=== PATIENT | female | born 1970 | race Caucasian/White ===

== ENCOUNTER → 2023-08-13 14:16 | Outpatient (REF) | payer MEDICARE, OTHER, SELFPAY | LOC: RAD 14:16 | PROVIDERS: ATTENDING PHYSICIAN Emergency Medicine; FAMILY PHYSICIAN Family Medicine | DX: M19.071 Primary osteoarthritis, right ankle and foot (principal); M25.472 Effusion, left ankle | CPT/HCPCS: 73610 ==

== ENCOUNTER 2023-10-24 18:07 | Observation (INO) | payer MEDICARE, OTHER, SELFPAY ==
[2023-10-24] VITALS (8 sets, daily range): BP systolic 119–181; BP diastolic 73–120; BMI 36.0
[2023-10-24 13:57] LABS: Glucose - Point of Care 88 mg/dl (70-99)
[2023-10-24 14:05] LABS: % Basophils 0.8 % (0-2); % Eosinophils 0.2 % (0-6); % Immature Granulocytes 0.6 % (0-0.5); % Lymphocytes 16.6 % (20.5-51.1); % Monocytes 5.5 % (1.7-9.3); % Neutrophils 76.3 % (42.2-75.2); Absolute Basophils 0.1 10^3/uL (0-0.2); Absolute Immature Granulocytes 0.1 10^3/uL (0-0.05); Absolute Lymphocytes 1.8 10^3/uL (1.2-3.4); Absolute Monocytes 0.6 10^3/uL (0.1-0.6); Absolute Neutrophils 8.3 10^3/uL (1.4-6.5); Hematocrit 38.4 % (37.0-47.0); Hemoglobin 13.7 g/dL (12.0-16.0); Mean Corp Hgb Conc. 35.7 g/dL (33.0-37.0); Mean Corpuscular Hgb 33.3 pg (27.0-31.0); Mean Corpuscular Volume 93.4 fL (81.0-99.0); Mean Platelet Volume 9.7 fL (7.4-10.4); Nucleated Red Blood Cells % 0 %; Platelet Count 296 10^3/uL (130-400); Red Blood Cell Count 4.11 10^6/uL (4.20-5.40); White Blood Cell Count 10.8 10^3/uL (4.8-10.8)
[2023-10-24 14:28] LABS: Troponin I < 0.012 ng/ml
[2023-10-24 14:36] LABS: ALT (SGPT) 15 U/L (0-35); AST (SGOT) 44 U/L (14-36); Albumin 4.5 g/dl (3.5-5.0); Alkaline Phosphatase 98 U/L (38-126); Blood Urea Nitrogen 21 mg/dl (7-17); Carbon Dioxide 24 mmol/L (22-30); Chloride 102 mmol/L (98-107); Glucose 90 mg/dl (70-99); Potassium 4.2 mmol/L (3.5-5.1); Sodium 136 mmol/L (135-145); Total Bilirubin 0.5 mg/dl (0.2-1.3); Total Protein 7.4 g/dl (6.3-8.2); eGFR > 60.00
[2023-10-24 14:47] LABS: Ammonia < 9 umol/L (9-30)
[2023-10-24 15:24] LABS: Alcohol 200 mg/dl
--- NOTE | 2023-10-24 16:10 | ED.GENMED ---
History of Present Illness
General
Chief Complaint: Change in Mental Status
Source: patient and spouse
Exam Limitations: clinical condition
Time Seen by Provider: 10/24/23 13:25
Travel History
Have you had any contact with someone who has COVID-19?: No
Do you have any symptoms of coronavirus? Fever > 100 degrees, chills, cough, shortness of breath, sore throat, loss of taste or smell, muscle aches, or headache?: No
History of Present Illness
History of Present Illness:
53-year-old female presents with her who states that the patient is had speech difficulties. noticed that about 36 hours ago. He states that today it was severe. He knows that she has had occasional difficulties with alcohol and
was not sure if it is alcohol related or not but that he has never seen her have speech difficulties like this. The patient denies daily alcohol use. She also is on chronic narcotic pain medications. She also has an intrathecal morphine pump.
Patient's history is somewhat limited due to the fact that she is aphasic. She denies headache. She denies vision changes.
Past History
Past History
ED Past Medical History: GERD (Takes Prilosec), HTN (Takes lisinopril and hydrochlorothiazide), Psychiatric (Patient takes Cymbalta and Lyrica), Other (PE) and Other (Patient has chronic back pain and takes oxycodone); Negative CAD or Cancer
ED Past Surgical History: None, Appendectomy and Cholecystectomy; Negative Cardiac or Orthopedic
Social History
Tobacco: Non-smoker
Alcohol: None
Personal:
Living: with family
Employment: Disabled
Family History
Family History: Hypertension
Phy Exam
Physical Exam
Physical Exam:
CONSTITUTIONAL Patient alert and oriented to person, place. Vital signs reviewed.
HEAD atraumatic, normocephalic.
EYES eyelids normal to inspection, Pupils equally round and reactive to light, Extraocular muscles intact, Conjunctiva normal, Sclera normal.
NECK normal range of motion, Trachea midline, no jugular venous distention.
RESPIRATORY CHEST No respiratory distress noted, Chest expansion equal, Bilateral breath sounds clear.
CARDIOVASCULAR regular rate and rhythm, Heart sounds normal.
ABDOMEN abdomen nontender, Bowel sounds normal. No distention.
BACK normal inspection, no obvious deformities
UPPER EXTREMITY range of motion normal, Motor strength normal, no cyanosis, no edema.
LOWER EXTREMITY range of motion normal, Motor strength normal, no cyanosis, no edema.
NEURO aphasic, No focal motor deficits, Cranial Nerves intact to screening exam. No pronator drift.
SKIN skin warm, dry, and normal in color.
Course
Orders/Labs/Results
Orders:
Orders
10/24/23 Lunch
Regular
At Your Request: Full Participation
Does patient need a safe tray?: No
10/24/23 13:49
Electrocardiogram (*1) Stat
Reason for Study: Other
Other Reason for Exam: neuro symptoms
CT Head W/o Iv Contrast Urgent
Comment:
Reason For Exam: aphasia
Cardiac Monitoring- Treatment ONCE
EKG- Treatment ONCE
10/24/23 13:51
Alcohol Urgent
Complete Blood Count/With Diff Urgent
Comprehensive Metabolic Panel Urgent
Magnesium Urgent
Comment: ADD ON
Phosphorus Urgent
Comment: ADD ON
Troponin I Urgent
10/24/23 14:17
Ammonia Urgent
10/24/23 16:17
Oxycodone [Roxicodone] 15 mg PO NOW STA
10/24/23 17:36
Admit/Transfer Patient As Directed
Co-Sign Provider:
Level of Care: Observation services
Assign to:: Telemetry
Physician / Group: Kelsea Steiner - barrieists
Diagnosis: Aphasia, ETOH intoxication
Reason for Telemetry: CVA/TIA
Date to Stop Telemetry: 10/27/23
Time to Stop Telemetry: 11:00
Reason for Hospitalization: Aphasia, ETOH intoxication
10/24/23 17:37
Code Status As Directed
Resuscitation Status: Full Code
10/24/23 20:19
0.9% Sodium Chloride [Nss (Preservative Free)] See Protocol IV PRN PRN
Acetaminophen [Tylenol] 650 mg PO Q4HPRN PRN
Bisacodyl [Dulcolax] 10 mg RECTAL [id number] PRN
Docusate W/Senna [Senokot-S] 1 tablet PO BIDPRN PRN
Enoxaparin Sodium [Lovenox] 40 mg SC QPM
FOLic ACID [Folvite] 1 mg 0.9% Sodium Chloride 50 ml [Nss] 50 ml IV DAILYPRN
Lorazepam [Ativan] 1 mg IV Q1HPRN PRN
Lorazepam [Ativan] 1 mg PO Q2HPRN PRN
Lorazepam [Ativan] 2 mg IV Q1HPRN PRN
Nicotine [Nicoderm Transdermal] 14 mg TRANSDERM DAILY
Ondansetron Injectable [Zofran] 4 mg IV Q6HPRN PRN
Oxycodone [Roxicodone] 5 mg PO Q4HPRN PRN
Polyethylene Glycol Powder [Miralax] 17 grams PO DAILYPRN PRN
Thiamine Injection 200 mg IV Q12
10/24/23 20:19
Add On- LAB Routine
Tests Added?: mag, phos
Case Management Consult Once
Case Management Consult: Other
Comment: Substance abuse counseling
DIETARY CONSULT Routine
Reason for Consult: Nutrition support, possible refeeding guidelines
NEUROLOGY CONSULT Routine
Consulting Provider: Lemuel Hopkins
Was physician already notified: Yes
Activity As Directed
Activity Level: As Tolerated
MSAS SCORE As Directed
MSAS Score 0-4: Repeat MSAS every 2 hours until 0-4 for three consecutive assessments, then every 4 hours x 48
hours.
MSAS Score 5-7: For MILD withdrawl symptoms. Repeat MSAS and RASS every 2 hours
MSAS Score 8-11: For MODERATE withdrawal symptoms. Repeat MSAS and RASS every 1 hour. Consider ICU or IMU
level of care.
MSAS Score > 11: For SEVERE withdrawal symptoms. Repeat MSAS and RASS every 1 hour. Notify provider, consider
ICU level of care.
MSAS Additional Instructions: If no improvement or no decrease in score from severe to moderate within 12
hours, consult psychiatry
MSAS Notify Provider: Notify provider if patient requires more than 10 mg of Lorazepam in eight hour period.
Neurological Checks As Directed
Frequency: q4h
Vital Signs As Directed
Frequency: Per unit guidelines
DX Deep Vein Thrombosis Video Routine
10/24/23 21:00
Pantoprazole [Protonix] 40 mg PO BID
10/24/23 22:00
Oxycodone [Roxicodone] 15 mg PO QID
Pregabalin [Lyrica] 300 mg PO HS
10/25/23 05:54
Basic Metabolic Panel IN AM
Cardiovascular Evaluation IN AM
Complete Blood Count/No Diff IN AM
Folate IN AM
Hemoglobin A1c [Glycohemoglobin (HgbA1c)] IN AM
Magnesium IN AM
Phos [Phosphorus] IN AM
TSH IN AM
Vitamin B12 IN AM
10/25/23 06:00
Pt Eval And Treat IN AM
Activity Level: As Tolerated
10/25/23 08:00
Duloxetine Delayed Release [Cymbalta Delayed Release] 60 mg PO DAILY
FOLic ACID [Folvite] 1 mg PO DAILY
Hydrochlorothiazide [Oretic] 25 mg PO DAILY
Lisinopril [Zestril] 40 mg PO DAILY
Pregabalin [Lyrica] 150 mg PO DAILY
10/27/23 11:00
DC Protocol for Telemetry ONCE
10/27/23 20:00
Thiamine HCl [Vitamin B1] 100 mg PO BID
Abnormal Lab Results
10/24/23 10/24/23
13:51 14:17
RBC 4.11 L 10^6/uL
(4.20-5.40)
MCH 33.3 H pg
(27.0-31.0)
Abs Immat Gran (auto) 0.1 H 10^3/uL
(0-0.05)
Absolute Neuts (auto) 8.3 H 10^3/uL
(1.4-6.5)
Immature Gran % 0.6 H %
(0-0.5)
Neutrophils % 76.3 H %
(42.2-75.2)
Lymphocytes % 16.6 L %
(20.5-51.1)
BUN 21 H mg/dl
(7-17)
AST 44 H U/L
(14-36)
Ammonia < 9 L umol/L
(9-30)
10/24/23 13:51
10/24/23 13:51
Vital Signs
Initial and Last Documented VS:
Initial Vital Signs
Temp Pulse Resp BP Pulse Ox
97.9 F 96 16 133/84 97
10/24/23 12:25 10/24/23 12:25 10/24/23 12:25 10/24/23 12:25 10/24/23 12:25
Last Documented Vital Signs
Temp Pulse Resp BP Pulse Ox
98.1 F 95 17 136/101 98
10/25/23 15:40 10/25/23 15:40 10/25/23 15:40 10/25/23 15:40 10/25/23 15:40
MDM/Problems Addressed
MDM/Problems Addressed:
Aphasia, acute alcohol intoxication, chronic opioid dependence
*Radiology
Radiology exam reviewed: radiology read reviewed
*Pulse Oximetry
Patient hypoxic: no
*EKG
Interpreted by ED Provider?: Yes
Interpretation: abnormal
Rate: normal
Interval: long QT
Ischemia: non-specific ST changes
*Pottery Decorator Interpretation
Rate: normal
Interpretation: normal
Rhythm: sinus
*Critical Care Note
Total Time (30-74mins, 75-104mins- exclusive of procedures): Not Applicable
Data Reviewed
Source: patient and family
Prescriptions/Medications Considered But Not Given:
Consider TNK but patient is not a candidate due to the fact that she is not on the window
Patient Management
Discussion with other providers: Hospitalist and Enginehouse Brakeman (Neurology)
Escalation/DeEscalation of care consider admission/obs:
53-year-old female who presents with pretty profound aphasia. On reevaluation seems slightly improved but does continue to have aphasia. Alcohol level noted. Question whether this could be more alcohol related than TIA/CVA but unclear. Despite
her aphasia she was awake alert and follow commands. CT negative. Case discussed with neurology. Hold off on treatment for now. Admit for obs. She did miss her dose of narcotics. Will treat with oxycodone that she normally takes to prevent
withdrawal
ED Attending Note
-
Portions of this chart may have been created with voice recognition software.� Occasional wrong word or��sound alike� substitutions may have occurred due to the inherent limitations of voice recognition software.
Discharge Plan
Departure
Patient Disposition: Admit
Date of Disposition: 10/24/23
Time of Disposition: 16:12
Admit to: Telemetry
Presentation/result/management discussed w/ accepting MD/DO: Hospitalist
Discharge Problem:
Aphasia, Alcohol intoxication
Interventions
Interventions:
*Risk Screen - Suicide Last Done: 10/24/23 13:01
*General Assessment Last Done: 10/24/23 13:00
*Neglect/Abuse Screening Last Done: 10/24/23 13:00
*ED COVID-19 Vaccine History Last Done: 10/24/23 13:00
*Nursing Disposition Last Done: 10/24/23 20:30
ED- Pulmonary Assessment Last Done: 10/24/23 13:00
ED- Neurological Assessment Last Done: 10/24/23 13:00
ED- Cardiac Assessment Last Done: 10/24/23 13:00
Discharge Date and Time
Discharge Date/Time: 10/24/23 20:36
[2023-10-24] MEDS: ROXICODONE 15 MG PO ×2 (16:27→21:35)
--- NOTE | 2023-10-24 17:14 | HPS.HSE ---
Family Physician
-
Family Physician: Wiliam Castorena
Chief Complaint
-
aphasia
History of Present Illness
53 y/o F, hx of GERD, HTN, Chronic back pain on oxycodone and morphine pump presents to ER with aphasia. noticed this 36 hours ago. He reports that patient had difficult with comprehending conversation, and giving inappropriate answers to
questions. 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 Also he reports patient did not endorse any other complaints such as CP or SOB, fever/chill or GI/ symptoms. He does report patient might have been drinking as he noticed
vodka and wine bottles (he works at night so is seeing these the morning after).
In ER, patient found to have ETOH level 200. Admitting for CVA evaluation as OBS patient.
Medical History
Past Medical History
Past Medical History: Reports Other (GERD, HTN, Chronic back pain on oxycodone and morphine pump)
Past Surgical History: Reports Appendectomy, Cholecystectomy and Other (L4-L5 discectomy)
Social History
Tobacco: Smoker (1 PPD)
Alcohol: Daily
Drug: None
Personal:
Living: With Family
Employment: Not Employed
Family History
Family History: Not pertinent
Allergies / Home Medications
Allergies reflects when Allergies were last updated in [employer].
Home Medications with original date entered in [employer]
Allergy/Medication List:
Allergies
Allergy/AdvReac Type Severity Reaction Status Date / Time
No Known Allergies Allergy Verified 10/24/23 12:29
Home Medications
duloxetine 60 mg capsule,delayed release 60 mg PO DAILY 02/27/14
omeprazole 40 mg capsule,delayed release 40 mg PO BID 02/27/14
Patient's Own Pain Pump 1 dose SC .CONTINUOUS 10/24/23
hydrochlorothiazide 25 mg tablet 25 mg PO DAILY 10/24/23
lisinopril 40 mg tablet 40 mg PO DAILY 10/24/23
oxycodone 15 mg tablet 15 mg PO QID 10/24/23
pregabalin 150 mg capsule 150 mg PO DAILY 10/24/23
pregabalin 150 mg capsule 300 mg PO HS 10/24/23
sumatriptan succinate 100 mg tablet 100 mg PO DAILY PRN migraine 10/24/23
Review of Systems
-
A 12 point ROS was completed and negative except as noted: Yes
Physical Exam
Vital Signs
Vital Signs
Temp Pulse Resp BP Pulse Ox
97.9 F 91 20 119/74 99
10/24/23 12:25 10/24/23 16:58 10/24/23 16:58 10/24/23 16:58 10/24/23 16:58
Physical Exam
General: No Apparent Distress and Obese
HEENT: NormoCephalic and Anicteric
Respiratory: No Wheezes or Rales
Cardiac: S1/S2 and Regular Rhythm
GI: Soft and Non Tender
Musculoskeletal: No Edema
Neuro: Awake, Alert, No Motor Deficits, No Sensory Deficits and Other (+asphasia)
Psych: Calm
Laboratory Results
-
10/24/23 13:51
10/24/23 13:51
Laboratory Results
Total Bilirubin 0.5 mg/dl (0.2-1.3) 10/24/23 13:51
AST 44 U/L (14-36) H 10/24/23 13:51
ALT 15 U/L (0-35) 10/24/23 13:51
Alkaline Phosphatase 98 U/L (38-126) 10/24/23 13:51
Troponin I < 0.012 ng/ml 10/24/23 13:51
Data Reviewed
-
CT Scan: Report Reviewed by me, Discussed with Patient and Discussed with Family
Lab Data: Labs Reviewed by me, Discussed with Patient and Discussed with Family
Impression/Plan
-
Assessment:
Aphasia
- suspect related to ETOH intake as no focality on exam
- CT head negative
- patient with morphine pump precluding MRI. will repeat CT in 24 hours per Neuro recommendations.
- neuro-checks q4h
- check lipids/A1C
- Neuro consulted
- PT in AM
Chronic ETOH intake (4-5 days a week, Vodka)
- AST mildly elevated otherwise normal LFTs
- no stigmata of chronic ETOH disease
- MSAS protocol
GERD
- continue PPI BID
Essential HTN
- continue HCTZ/MARISOL
Chronic back pain on oxycodone and morphine pump
- also on Lyrica, Cymbalta
- will continue all to avoid withdrawal
Chronic smoking, 1 ppd since 'teen years'
- cessation counselling
- Nicotine patch
DVT ppx: Lovenox
Code: Full
--- NOTE | 2023-10-24 19:16 | PTCARENOTE ---
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 Patient is already orderes MSAS. Patient has an intrathecal morphine pump which as per patient is filled monthly and she is due for it to be filled.
[2023-10-24] MEDS: PROTONIX 40 MG PO (20:49)
[2023-10-24] MEDS: ROXICODONE 5 MG PO (20:49)
[2023-10-24] MEDS: NICODERM TRANSDERMAL 14 MG TRANSDERM (20:50)
[2023-10-24] MEDS: THIAMINE INJECTION 200 MG IV (20:51)
[2023-10-24] MEDS: LOVENOX 40 MG SC (20:52)
[2023-10-24 21:01] LABS: Magnesium 1.7 mg/dl (1.6-2.3)
[2023-10-24] MEDS: LYRICA 300 MG PO (21:34)
[2023-10-24] MEDS: ZESTRIL 20 MG PO (22:24)
[2023-10-25] MEDS: ROXICODONE 5 MG PO ×4 (01:32→14:41)
[2023-10-25 03:18] VITALS: BP 178/92
[2023-10-25] MEDS: APRESOLINE 5 MG IV (05:07)
[2023-10-25 07:30] VITALS: BP 165/111
[2023-10-25 08:20] LABS: Hematocrit 37.7 % (37.0-47.0); Hemoglobin 13.2 g/dL (12.0-16.0); Mean Corpuscular Hgb 33.2 pg (27.0-31.0); Mean Corpuscular Volume 94.7 fL (81.0-99.0); Mean Platelet Volume 10.6 fL (7.4-10.4); Platelet Count 279 10^3/uL (130-400); Red Blood Cell Count 3.98 10^6/uL (4.20-5.40); Red Cell Dist. Width 13.7 % (11.5-14.5); White Blood Cell Count 11.5 10^3/uL (4.8-10.8)
[2023-10-25] MEDS: NICODERM TRANSDERMAL 14 MG TRANSDERM (08:24)
[2023-10-25] MEDS: ORETIC 25 MG PO (08:25)
[2023-10-25] MEDS: ZESTRIL 40 MG PO (08:25)
[2023-10-25] MEDS: CYMBALTA DELAYED RELEASE 60 MG PO (08:25)
[2023-10-25] MEDS: LYRICA 150 MG PO (08:25)
[2023-10-25] MEDS: PROTONIX 40 MG PO (08:26)
[2023-10-25] MEDS: FOLVITE 1 MG PO (08:26)
[2023-10-25] MEDS: ROXICODONE 15 MG PO ×2 (08:26→12:35)
[2023-10-25] MEDS: THIAMINE INJECTION 200 MG IV (08:26)
[2023-10-25 08:47] LABS: Blood Urea Nitrogen 28 mg/dl (7-17); Calcium 9.2 mg/dl (8.4-10.2); Carbon Dioxide 21 mmol/L (22-30); Chloride 101 mmol/L (98-107); Estimated Creatinine Clearance 88 ml/min; Glucose 95 mg/dl (70-99); HDL Cholesterol 68 mg/dl; Magnesium 1.6 mg/dl (1.6-2.3); Phosphorus 3.1 mg/dl (2.5-4.5); Potassium 3.5 mmol/L (3.5-5.1); Sodium 135 mmol/L (135-145); Total Cholesterol 251 mg/dl (50-199); eGFR > 60.00
--- NOTE | 2023-10-25 08:52 | CON.NEURO ---
Neuro Assessment/Plan
Assessment
IMPRESSIONS/RECOMMENDATIONS:
Abrupt change in speech
Most likely due to excessive alcohol intake with routine use of opiates to treat chronic back pain
Plan
Supportive care for alcohol overdose
Will continue to follow patient as needed
Consultation
Order
Date of Consultation: 10/25/23
Requesting Provider: Hospitalist
Reason for Consult: Aphasia
Subjective/Objective
Subjective Data
Date of Service: October 25, 2023
Right-Handed
Patient presented to this hospital's emergency department with 36 hours prior to presentation of declining ability to provide answers and greater difficulty with comprehending conversation.
In the emergency department, the patient's alcohol level was found to be 200.
The patient herself indicates that she has had a complete resolution of symptomatology and acknowledges that she had an excessive amounts of alcohol producing symptoms. No prior episodes which were similar. No other known associated symptoms with
the exception of excessive tremulousness currently.
Objective Data
Vital Signs
Temp Pulse Resp BP Pulse Ox
37.2 C 91 19 165/111 97
10/25/23 07:30 10/25/23 07:30 10/25/23 07:30 10/25/23 07:30 10/25/23 07:30
Lab Results
10/25/23 05:54
Sodium 135 mmol/L (135-145) 10/25/23 05:54
Potassium 3.5 mmol/L (3.5-5.1) 10/25/23 05:54
BUN 28 mg/dl (7-17) H 10/25/23 05:54
Glucose 95 mg/dl (70-99) 10/25/23 05:54
Calcium 9.2 mg/dl (8.4-10.2) 10/25/23 05:54
Phosphorus 3.1 mg/dl (2.5-4.5) 10/25/23 05:54
Patient Allergies
No Known Allergies Allergy (Verified 10/24/23 12:29)
Review of Systems
-
History Source: Patient
All other systems: Reviewed and negative
Neuro: Negative Dizzy or Headache
Physical Exam
-
General: No Apparent Distress and Appears Stated Age
Eyes: Round OU, [place] Conjunctivae and No Ptosis
HEENT: Anicteric and Moist Mucous Membranes
Neck: Full Range of Motion
Respiratory: No Dyspnea
Cardiac: No JVD
GI: Non-distended
Skin: Unremarkable
Extremities: No Clubbing, No Cyanosis and No Edema
Psych: Intact Judgement/Insight
Extended Neurological Exam
Mood & Affect: Mood Unremarkable and Affect Unremarkable
Attention Span & Concentration: Awake, Alert and Interactive
Tremor: Head Tremor Absent, Amplitude (Low), Once and With Action
Speech: Quality Unremarkable and Quantity Unremarkable
Cranial Nerve II: Left Eye: Pupillary Size Unremarkable and Visual Zeng Grossly Intact
Cranial Nerve II: Right Eye: Pupillary Size Unremarkable and Visual Zeng Grossly Intact
Cranial Nerves III, IV, : Extraocular Movement: Grossly Intact
Cranial Nerve VII: Facial Symmetry: Normal Facial Symmetry
Cranial Nerve VIII: Hearing: Unremarkable Hearing to Normal Conversational Volume
Muscle Strength, Overall: Spontaneously Moves (All extremities)
Muscle Bulk & Tone: Bulk Unremarkable
Coordination: Reaches for Objects without Difficulty
Data Reviewed
-
CT Head: Report Reviewed
Labs: Report Reviewed
Reviewed with: Physician and Patient
Old Records: Summarized
Medications
-
Active Medications
Generic Name Dose Route Start Last Admin
Trade Name Freq PRN Reason Stop Dose Admin
Acetaminophen 650 mg 10/24/23 20:19
Acetaminophen 325 Mg Tablet PO 11/21/23 20:18
Q4HPRN PRN
mild pain/HARDY/temp> 100.4F
Bisacodyl 10 mg 10/24/23 20:19
Bisacodyl 10 Mg Rectal Suppository RECTAL 11/21/23 20:18
[id number] PRN
constipation
Device 0 each 10/24/23 20:45
Patient's Own Medication Pump SC 11/21/23 20:44
DIRECTED BROOKE
Duloxetine HCl 60 mg 10/25/23 08:00 10/25/23 08:25
Duloxetine Delayed Release 60 Mg Capsule PO 11/22/23 07:59 60 mg
DAILY BROOKE Administration
Enoxaparin Sodium 40 mg 10/24/23 20:19 10/24/23 20:52
Enoxaparin Sodium 40 Mg/0.4 Ml Syringe SC 11/21/23 20:18 40 mg
QPM BROOKE Administration
Folic Acid 1 mg 10/25/23 08:00 10/25/23 08:26
Folic Acid 1 Mg Tablet PO 11/22/23 07:59 1 mg
DAILY BROOKE Administration
Hydrochlorothiazide 25 mg 10/25/23 08:00 10/25/23 08:25
Hydrochlorothiazide 25 Mg Tablet PO 11/22/23 07:59 25 mg
DAILY BROOKE Administration
Folic Acid 1 mg/ Sodium 50.2 mls @ 200.8 mls/hr 10/24/23 20:19
Chloride IV 11/21/23 20:18
DAILYPRN PRN
if NPO
Lisinopril 40 mg 10/25/23 08:00 10/25/23 08:25
Lisinopril 20 Mg Tablet PO 11/22/23 07:59 40 mg
DAILY BROOKE Administration
Lorazepam 1 mg 10/24/23 20:19
Lorazepam 1 Mg Tablet PO 11/21/23 20:18
Q2HPRN PRN
MSAS 5-7
Lorazepam 1 mg 10/24/23 20:19
Lorazepam 2 Mg/Ml Vial IV 11/21/23 20:18
Q1HPRN PRN
MSAS 8-11
Lorazepam 2 mg 10/24/23 20:19
Lorazepam 2 Mg/Ml Vial IV 11/21/23 20:18
Q1HPRN PRN
MSAS > 11
Nicotine 14 mg 10/24/23 20:19 10/25/23 08:24
Nicotine 14 Mg Patch TRANSDERM 11/21/23 20:18 14 mg
DAILY BROOKE Administration
Oxycodone HCl 15 mg 10/24/23 22:00 10/25/23 08:26
Oxycodone 15 Mg Regular Release Tablet PO 11/07/23 21:59 15 mg
QID BROOKE Administration
Oxycodone HCl 5 mg 10/24/23 20:19 10/25/23 05:41
Oxycodone 5 Mg Regular Release Tablet PO 11/07/23 20:18 5 mg
Q4HPRN PRN Administration
moderate pain
Pantoprazole Sodium 40 mg 10/24/23 21:00 10/25/23 08:26
Pantoprazole 40 Mg Delayed Release Tablet PO 11/21/23 20:59 40 mg
BID BROOKE Administration
Polyethylene Glycol 17 grams 10/24/23 20:19
Polyethylene Glycol Powder 17 Grams Packet PO 11/21/23 20:18
DAILYPRN PRN
constipation
Pregabalin 150 mg 10/25/23 08:00 10/25/23 08:25
Pregabalin 75 Mg Capsule PO 11/22/23 07:59 150 mg
DAILY BROOKE Administration
Pregabalin 300 mg 10/24/23 22:00 10/24/23 21:34
Pregabalin 100 Mg Capsule PO 11/21/23 21:59 300 mg
HS BROOKE Administration
Senna/Docusate Sodium 1 tablet 10/24/23 20:19
Docusate W/Senna (Kacie-Colace) Tablet PO 11/21/23 20:18
BIDPRN PRN
constipation
Sodium Chloride 0 ml 10/24/23 20:19
Sodium Chloride 0.9% (Preservative Free) 10 Ml Vial IV 11/21/23 20:18
PRN PRN
To dilute IV Ativan
Protocol
Thiamine HCl 200 mg 10/24/23 20:19 10/25/23 08:26
Thiamine (100 Mg/Ml) 2 Ml Vial IV 10/27/23 08:01 200 mg
Q12 BROOKE Administration
Thiamine HCl 100 mg 10/27/23 20:00
Thiamine 100 Mg Tablet PO 11/24/23 19:59
BID BROOKE
Home Medications
�Medication �Instructions �Recorded
duloxetine 60 mg capsule,delayed 60 mg PO DAILY 02/27/14
release
omeprazole 40 mg capsule,delayed 40 mg PO BID 02/27/14
release
Patient's Own Pain Pump 1 dose continuous intrathecal 10/24/23
infusion .CONTINUOUS
hydrochlorothiazide 25 mg tablet 25 mg PO DAILY 10/24/23
lisinopril 40 mg tablet 40 mg PO DAILY 10/24/23
oxycodone 15 mg tablet 15 mg PO QID 10/24/23
pregabalin 150 mg capsule 150 mg PO DAILY 10/24/23
pregabalin 150 mg capsule 300 mg PO HS 10/24/23
sumatriptan succinate 100 mg tablet 100 mg PO DAILY PRN migraine 10/24/23
Past History
Past History
ED Past Medical History: Cancer (Parathyroid tumor 2018), GERD (Takes Prilosec), HTN (Takes lisinopril and hydrochlorothiazide), Psychiatric (Major depression, generalized anxiety disorder), Other (Endometriosis, pulmonary embolism 2007, external
hemorrhoids) and Other (chronic back pain)
ED Past Surgical History: Appendectomy, Cholecystectomy, Gynecological (Endometrial ablation), Orthopedic (Laminectomy, spinal cord stimulator) and Other (Pain pump implant 2018); Negative Cardiac
Social History
Tobacco: Former smoker
Alcohol: Chronic alcoholic
Personal:
Living: with family
Employment: Disabled
Family History
Family History: Hypertension
[2023-10-25 09:10] VITALS: BP 164/103; PULSE 95; O2SAT 97
[2023-10-25 09:13] LABS: TSH 6.83 uIU/ml (0.47-4.68)
[2023-10-25 09:17] LABS: LDL Cholesterol, Calculated 103 mg/dl; Triglyceride 400 mg/dl (10-149); Very Low Density Lipoprotein 80 mg/dl (0-30)
[2023-10-25 09:48] LABS: Folate 8.2 ng/ml (2.76-20); Vitamin B12 215 pg/ml (239-931)
[2023-10-25 09:57] LABS: LDL Cholesterol, Direct 148 mg/dl
[2023-10-25 10:48] LABS: Glycohemoglobin (HgbA1c) 5.4 % (4.0-5.6)
[2023-10-25 11:35] VITALS: BP 159/98
[2023-10-25 12:05] VITALS: BP 157/106
--- NOTE | 2023-10-25 12:23 | W.PN.HOSP.TC ---
Today's Communication/Plan
-
dc to home later today
Assessment / Plan
Assessment / Plan
Assessment:
Aphasia
- suspect related to ETOH intake as no focality on exam
- CT head negative
- no indication per neuro for repeat CT as aphasia likely ETOH related and now resolved
Low b12 from ETOH intake
- replacement ordered
Chronic ETOH intake (4-5 days a week, Vodka)
- AST mildly elevated otherwise normal LFTs
- no stigmata of chronic ETOH disease
- MSAS protocol
GERD
- continue PPI BID
Essential HTN
- continue HCTZ/MARISOL
- add Toprol XL 25mg daily for HTN urgency
- PCP f/u for BP check in 1 week
Chronic back pain on oxycodone and morphine pump
- also on Lyrica, Cymbalta
- will continue all to avoid withdrawal
- follows with pain management outpatient
Chronic smoking, 1 ppd since 'teen years'
- cessation counselling
- Nicotine patch
Elevated TSH - follow free T4
DVT ppx: Lovenox
Code: Full
More than 30 minutes spent in discharge including
Final examination of the patient
Summarizing hospital stay
Instructions for continuing care to all relevant caregivers
Preparation of discharge records, prescriptions, and referral forms
Total time spent (in minutes): 42
Anticipated Discharge: Today
Subjective/Interval History
-
Date of Service: October 25, 2023
aphasia most resolved
denies any new complaints
Objective Data
-
Labs:
Laboratory Results
10/25/23
05:54
WBC 11.5 H
Hgb 13.2
Hct 37.7
Plt Count 279
Sodium 135
Potassium 3.5
Chloride 101
Carbon Dioxide 21 L
BUN 28 H
Creatinine 0.9
Glucose 95
Calcium 9.2
Vital Signs:
Vital Signs
Temp Pulse Resp BP Pulse Ox
98.8 F 107 17 157/106 98
10/25/23 11:35 10/25/23 12:05 10/25/23 12:05 10/25/23 12:05 10/25/23 12:05
I&O
10/24/23 10/25/23 10/26/23
06:59 06:59 06:59
Intake Total 960 / 960
Balance 960 / 960
Physical Exam
-
General: No Apparent Distress
HEENT: Normocephalic and Atraumatic
Respiratory: Negative Wheezes or Rales
Cardiac: Regular Rhythm and S1/S2
GI: Soft and Nontender
Musculoskeletal: No Edema
Neuro: AO x 3
Hematologic / Lymphatic: No Lymphadenopathy
Psych: Calm
Data Reviewed
-
Total Time Spent with Patient (in minutes): 42
Labs: Labs Reviewed by me
[2023-10-25] MEDS: TOPROL XL 25 MG PO (12:35)
[2023-10-25] MEDS: VITAMIN B-12 100 MCG PO (12:35)
--- NOTE | 2023-10-25 12:37 | W.DS.TRANS ---
DC Summary - Applications Manager
-
Discharge Instructions:
Discharge Diagnosis/Procedures alcohol related asphasia, elevated BP
Diet 2 Gram Sodium
Activity As tolerated
Bathing Restrictions None
Instructions:
Stand-Alone Forms:
Changes to Home Medications: Yes
Discharge Medications:
DC Medications w/original date entered in [facility]
duloxetine 60 mg capsule,delayed release 60 mg PO DAILY 02/27/14
omeprazole 40 mg capsule,delayed release 40 mg PO BID 02/27/14
Patient's Own Pain Pump 1 dose continuous intrathecal infusion .CONTINUOUS 10/24/23
hydrochlorothiazide 25 mg tablet 25 mg PO DAILY 10/24/23
lisinopril 40 mg tablet 40 mg PO DAILY 10/24/23
oxycodone 15 mg tablet 15 mg PO QID 10/24/23
pregabalin 150 mg capsule 150 mg PO DAILY 10/24/23
pregabalin 150 mg capsule 300 mg PO HS 10/24/23
sumatriptan succinate 100 mg tablet 100 mg PO DAILY PRN migraine 10/24/23
cyanocobalamin (vitamin B-12) 100 mcg tablet 100 mcg PO DAILY #100 tabs 10/25/23
folic acid 1 mg tablet 1 mg PO DAILY #100 tabs 10/25/23
metoprolol succinate 25 mg tablet,extended release 24 hr 25 mg PO DAILY #30 tabs 10/25/23
oxycodone 5 mg tablet 5 mg PO Q4HPRN PRN moderate pain #8 tabs 10/25/23
thiamine HCl (vitamin B1) 100 mg tablet 100 mg PO BID #100 tabs 10/25/23
Home Medication Changes
Toprol XL added
Pending Results: No
Total time spent discharging patient (in min): 42
--- NOTE | 2023-10-25 13:01 | CM ---
disease case manager reviewed patient's chart and met with patient and [facility]OME[facility] letter completed at 12:00, patient lives with spouse in a 2 story home, patient is independent with adl's and ambulation, no dme, marcia drives, patient has a prescription plan and
patient uses [facility].
disease case manager reviewed alcohol support and treatment options with patient but patient declined, Home today with spouse no needs.
PCP: Dr. Castorena
Plan; Home no needs
[2023-10-25 13:40] LABS: Free T4 1.08 ng/dl (0.78-2.19)
[2023-10-25 15:40] VITALS: BP 136/101
== END 2023-10-25 17:30 | disposition home or self-care (01) ==
LOC: 4 WEST ACU 18:07
PROVIDERS: ADMITTING PHYSICIAN Internal Medicine; CONSULT PHYSICIAN Psychiatry & Neurology Neurology; EMERGENCY PHYSICIAN Emergency Medicine; FAMILY PHYSICIAN Family Medicine
DX: F10.220 Alcohol dependence with intoxication, uncomplicated (principal); Y90.7 Blood alcohol level of 200-239 mg/100 ml; R47.01 Aphasia; I16.0 Hypertensive urgency; R41.82 Altered mental status, unspecified; I10 Essential (primary) hypertension; K21.9 Gastro-esophageal reflux disease without esophagitis; G89.29 Other chronic pain; F11.20 Opioid dependence, uncomplicated; M54.9 Dorsalgia, unspecified; E53.8 Deficiency of other specified B group vitamins; F17.210 Nicotine dependence, cigarettes, uncomplicated; F32.9 Major depressive disorder, single episode, unspecified; F41.1 Generalized anxiety disorder; N80.9 Endometriosis, unspecified; Z90.49 Acquired absence of other specified parts of digestive tract; Z82.49 Family history of ischemic heart disease and other diseases of the circulatory system; Z86.711 Personal history of pulmonary embolism; Z87.19 Personal history of other diseases of the digestive system
CPT/HCPCS: 70450; 80048; 80053; 80061; 82077; 82140; 82607; 82746; 82962; 83036; 83721; 83735; 84100; 84439; 84443; 84484; 85025; 85027; 93005; 97161; 99285; 99406; G0378

== ENCOUNTER → 2024-06-01 11:17 | Outpatient (REF) | payer MEDICARE, OTHER, SELFPAY | LOC: WDC 11:17 | PROVIDERS: ATTENDING PHYSICIAN Family Medicine | DX: Z12.31 Encounter for screening mammogram for malignant neoplasm of breast (principal) | CPT/HCPCS: 77063; 77067 ==

== ENCOUNTER → 2024-06-07 09:48 | Outpatient (REF) | payer MEDICARE, OTHER, SELFPAY | LOC: RAD 09:48 | PROVIDERS: ATTENDING PHYSICIAN Family Medicine | DX: Z87.891 Personal history of nicotine dependence (principal) | CPT/HCPCS: 71271 ==

== ENCOUNTER → 2024-08-20 14:15 | Outpatient (REF) | payer MEDICARE, OTHER, SELFPAY | LOC: DHSLP 14:15 | PROVIDERS: ATTENDING PHYSICIAN Internal Medicine Critical Care Medicine | DX: G47.33 Obstructive sleep apnea (adult) (pediatric) (principal); R09.02 Hypoxemia | CPT/HCPCS: 95800 ==

== ENCOUNTER 2025-01-06 06:19 | Day surgery (SDC) | payer MEDICARE, OTHER, SELFPAY | END 2025-01-06 14:45 | disposition home or self-care (01) | LOC: GI 06:19 | PROVIDERS: ATTENDING PHYSICIAN Internal Medicine Gastroenterology | DX: Z12.11 Encounter for screening for malignant neoplasm of colon (principal); K57.30 Diverticulosis of large intestine without perforation or abscess without bleeding; K56.2 Volvulus; Q43.8 Other specified congenital malformations of intestine; K20.90 Esophagitis, unspecified without bleeding; K22.89 Other specified disease of esophagus; R12 Heartburn; R10.13 Epigastric pain; Z53.9 Procedure and treatment not carried out, unspecified reason | CPT/HCPCS: 43239; G0121; 88305; 88342 ==

== ENCOUNTER → 2025-03-23 07:52 | Outpatient (REF) | payer MEDICARE, OTHER, SELFPAY | LOC: DHSLP 07:52 | PROVIDERS: ATTENDING PHYSICIAN Internal Medicine Critical Care Medicine; FAMILY PHYSICIAN Family Medicine | DX: G47.33 Obstructive sleep apnea (adult) (pediatric) (principal); G47.00 Insomnia, unspecified; G47.52 REM sleep behavior disorder | CPT/HCPCS: 95810 ==